=== PATIENT | female | born 1985 | race Caucasian/White ===

== ENCOUNTER 2024-11-30 12:18 | Emergency (ER) | payer OTHER, SELFPAY ==
--- NOTE | ~2024-11-30 | CT_ITS ---
CT abdomen pelvis w con Clinical History: R flank pain, UTI . Comparison: Pelvic ultrasound same day Technique: Axial images lung bases to symphysis pubis 100 mL Omnipaque 350 Coronal, sagittal reformats CT images acquired with automatic exposure control for dose reduction DLP: 213 mGy-cm Findings: Lung bases: Clear. Visualized heart and pericardium: Unremarkable. Liver: Mild periportal edema. Gallbladder: Unremarkable. Spleen: Unremarkable. Pancreas: Unremarkable. Adrenal glands: Unremarkable. Kidneys: Right kidney- No hydronephrosis. No renal stones. Left kidney- No hydronephrosis. No renal stones. Distal esophagus/stomach: Apparent gastric antral wall thickening likely merely underdistention. Small bowel loops: Normal caliber and wall thickness. Colon: Diverticula. Normal caliber and wall thickness. Normal RLQ appendix. Nodes: No enlarged nodes. Peritoneum: No ascites. No free air. Urinary bladder: Unremarkable. Uterus: Unremarkable. Adnexa: No masses. Bones: No acute bony abnormality. Soft tissues: Breast implants. Aorta: No aneurysm or dissection. IVC: Unremarkable. Main portal vein/SMV/splenic vein: Patent. IMPRESSION: 1. No acute findings. Reviewed, dictated and finalized at location R. IMPRESSION: 1. No acute findings.
--- NOTE | ~2024-11-30 | US_ITS ---
EXAMINATION: US pelvic complete w TV DATE: 11/30/2024 20:46 INDICATION: Vaginal bleeding and abdominal cramping TECHNIQUE: Multiple transabdominal and endovaginal sonographic images of the pelvis were obtained. COMPARISON: None. FINDINGS: The uterus measures 9.5 x 6.0 x 6.2 cm. The endometrial complex measures 9 mm in thickness. 5 mm anechoic cyst at the cervix. The right ovary measures 3.5 x 2.0 x 2.3 cm. The left ovary measures 2.6 x 2.5 x 2.2 cm. There are anechoic cysts/follicles in both ovaries measuring 7 mm on the right and 13 mm on the left. There is normal vascular flow in the ovaries. There is no free fluid in the pelvis. IMPRESSION: 1. Unremarkable pelvic ultrasound with small nabothian cyst at the cervix and small bilateral ovarian cysts/follicles. Reviewed, dictated and finalized at location A. IMPRESSION: 1. Unremarkable pelvic ultrasound with small nabothian cyst at the cervix and s mall bilateral ovarian cysts/follicles.
[2024-11-30 12:21] VITALS: BP 132/80; PULSE 68; RESP 16; TEMP 36.8; O2SAT 100
--- OUTSIDE RECORDS SUMMARY | 2024-11-30 12:22 | XMS_ITS | Clinical Summary ---
Author Organization [facility] Address [address] [place] [address] Phone Care Team Providers Care Uniform Patrol Police Officer Name Role Phone Codie Mario Ellis DO Primary Care Provider [phone] Medications Vilazodone HCl (VIIBRYD) 40 MG TabletIndications :Major Depressive Disorder Take 20 mg by mouth daily. Reported on 07/06/2016 Indications: Major Depressive Disorder 05/11/19 17 Active Vilazodone HCl (VIIBRYD) 20 MG TabletIndications :Major Depressive Disorder Take 20 mg by mouth. Indications: Major Depressive Disorder Active Dexmethylphenidat e HCl (FOCALIN XR) 10 MG CAPSULE SR 24 HRIndications:Att ention Deficit Hyperactivity Disorder Take 10 mg by mouth every morning. Indications: Attention Deficit Hyperactivity Disorder Active traZODone (DESYREL) 50 MG TabletIndications :Insomnia Take 50 mg by mouth nightly. Indications: Trouble Sleeping Active Active Problems Problem Noted Date Diagnosed Date Major depressive disorder, recurrent, moderate 0 05/29/2016 Generalized anxiety disorder 05/29/2016 Family History Medical History Relation Name Comments No Known Problems Brother Romeo Hypertension Father Malachi Diabetes Mother Angela High Cholesterol Mother Angela Hypertension Mother Angela No Known Problems Sister Lisa Relation Name Status Comments Brother Romeo Alive Father Malachi Alive Mother Angela Alive Sister Lisa Alive Social History Tobacco Use Types Packs/Day Years Used Date Smoking Tobacco: Never Smokeless Tobacco: Never Alcohol Use Standard Drinks/Week Comments Yes 0 (1 standard drink = 0.6 oz pur e alcohol) Occassionally Sexually Active Control Partners Comments Never Comments Unknown Sex and Gender Information Value Date Recorded Sex Assigned at Not on file 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 Gender Identity Not on file Sexual Orientation Not on file Plan of Treatment Health Maintenance Due Date Last Done Comments Hepatitis C Virus (HCV) Screening 1985 TdaP Immunization 1985 Hepatitis B Immunization (1 of 3 - 19+ 3-dose series) 2004 Pap Smear 2006 Human Papillomavirus (HPV) Immunization (1 - 3-dose SCDM series) 2012 Cervical Cancer Screening (CCS) 2015 HPV/Cotest 2015 SARS-COV-2 Immunization ( season) 2023 Influenza Immunization (#1) 2024 Respiratory Syncytial Virus (RSV) Immunization (Adult) (1 - 1-dose 75+ series) 2060 Meningococcal Immunization (ACWY) Aged Out No longer eligible based on patient's age to complete this topic Pneumococcal Immunization Combined Aged Out No longer eligible based on patient's age to complete this topic Rotavirus Immunization Aged Out No lo nger eligible based on patient's age to complete this topic Insurance Care Teams Uniform Patrol Police Officer Relationship Specialty Start Date End Date Mario Mackay DO [address] [place] [address] PCP - General Family Medicine 05/15/16
[2024-11-30 16:37] VITALS: BP 120/81; PULSE 79; RESP 16; O2SAT 100
--- NOTE | 2024-11-30 18:04 | ED.FEMALEGU ---
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 She reports she has a history of heavy menstrual periods but yesterday her bleeding became significant. Patient reports she has been passing clots, dizzy, and lightheaded. She denies any urinary symptoms, recent fevers, chest pain or shortness of breath. Patient reports she has also been experiencing intermittent abdominal pain and right-sided back pain. She reports she is not on control. Patient endorses a history of adenomyosis denies any other medical history relevant to this ER visit. <Ivy Love APRN - Last Filed: 11/30/24 19:20> Related Data Allergies/Adverse reactions: Allergies Allergy/AdvReac Type Severity Reaction Status Date / Time Penicillins Allergy Unknown Hives Verified 11/30/24 21:55 <Ivy Love APRN - Last Filed: 11/30/24 19:20> Review of Systems Review of Systems: All systems reviewed & are unremarkable except as noted in HPI and below <Ivy Love APRN - Last Filed: 11/30/24 19:20> Exam Narrative: GENERAL: Well appearing, well-nourished, non-toxic, in no acute distress. HEAD: Normocephalic, atraumatic. NECK: Supple. No adenopathy, no masses. RESPIRATORY: Airway patent, respirations nonlabored. Clear to auscultation bilaterally, no rales, rhonchi, wheezing. CARDIOVASCULAR: Regular rate and rhythm without murmurs, rubs, or gallops. Peripheral pulses 2+ and equal bilaterally. + right-sided CVA tenderness ABDOMINAL: Soft, bilateral lower quadrant tenderness, nondistended, no hepatosplenomegaly. Normoactive BS. MUSCULOSKELETAL: Moves all extremities. Strength/ROM intact without gross deformities. SKIN: Warm, dry, normal color. No rashes. NEURO: A&O X3. Speech clear. Cranial nerves II-XII intact. No ataxic movements. PSYCHIATRIC: Appropriate mood and affect. Normal interaction. <Ivy Love APRN - Last Filed: 11/30/24 19:20> Course Vital Signs Vital signs: Vital Signs Temperature 98.3 F 11/30/24 12:21 Pulse Rate 68 11/30/24 12:21 Respiratory Rate 16 11/30/24 12:21 Blood Pressure 132/80 11/30/24 12:21 Pulse Oximetry 100 11/30/24 12:21 Temperature 98.3 F 11/30/24 12:21 Pulse Rate 59 L 11/30/24 23:54 Respiratory Rate 14 11/30/24 23:54 Blood Pressure 107/71 11/30/24 23:54 Pulse Oximetry 100 11/30/24 23:54 <Ivy Love STEAM FRAME OPERATOR - Last Filed: 11/30/24 19:20> Vital Signs Temperature 98.3 F 11/30/24 12:21 Pulse Rate 68 11/30/24 12:21 Respiratory Rate 16 11/30/24 12:21 Blood Pressure 132/80 11/30/24 12:21 Pulse Oximetry 100 11/30/24 12:21 Temperature 98.3 F 11/30/24 12:21 Pulse Rate 59 L 11/30/24 23:54 Respiratory Rate 14 11/30/24 23:54 Blood Pressure 107/71 11/30/24 23:54 Pulse Oximetry 100 11/30/24 23:54 <Radha Hastings PA-C - Last Filed: 12/01/24 00:20> MDM - Female Genitourinary MDM Narrative Medical decision making narrative: Patient is a 39-year-old female who presents to the ER with concerns for heavy vaginal bleeding. She reports she has a history of heavy menstrual periods but yesterday her bleeding became significant. Patient reports she has been passing clots, dizzy, and lightheaded. She denies any urinary symptoms, recent fevers, chest pain or shortness of breath. Patient reports she has also been experiencing intermittent abdominal pain and right-sided back pain. She reports she is not on control. Patient endorses a history of adenomyosis denies any other medical history relevant to this ER visit. Labs Ordered: CBC, CMP, PTT, INR, lipase, UA Imaging Ordered: Pelvic ultrasound Medications Ordered: 1 L normal saline IV bolus, morphine 4 mg IV, Zofran 4 mg IV Results: Patient's CBC indicates no acute abnormalities. Her CMP indicates a creatinine of 0.62 but is otherwise unremarkable. Patient's lipase is 113. Her coags are within normal limits. Patient's urinalysis indicates patient has urinary tract infection. 1919- Care signed out to Radha Hastings PA-C, pending ultrasound results. <Ivy Love, STEAM FRAME OPERATOR - Last Filed: 11/30/24 19:20> Patient is a 39-year-old female who presents to the ER with concerns for heavy vaginal bleeding. She reports she has a history of heavy menstrual periods but yesterday her bleeding became significant. Patient reports she has been passing clots, dizzy, and lightheaded. She denies any urinary symptoms, recent fevers, chest pain or shortness of breath. Patient reports she has also been experiencing intermittent abdominal pain and right-sided back pain. She reports she is not on control. Patient endorses a history of adenomyosis denies any other medical history relevant to this ER visit. Labs Ordered: CBC, CMP, PTT, INR, lipase, UA Imaging Ordered: Pelvic ultrasound Medications Ordered: 1 L normal saline IV bolus, morphine 4 mg IV, Zofran 4 mg IV Results: Patient's CBC indicates no acute abnormalities. Her CMP indicates a creatinine of 0.62 but is otherwise unremarkable. Patient's lipase is 113. Her coags are within normal limits. Patient's urinalysis indicates patient has urinary tract infection. 1919- Care signed out to Radha Hastings PA-C, pending ultrasound results. - Care signed out to myself at shift change pending US results. US unremarkable, small nabothian cyst, small bilateral follicles. No concerning features. Discussed imaging findings with patient, diagnosis of UTI. Patient still having moderate pain in lower abd/R flank region. Requesting additional pain medication. Discussed obtaining CT imaging. Utilize shared decision-making. Patient would like to proceed with this. CT scan was unremarkable. No evidence of pyelonephritis. Patient will be discharged at that time on Bactrim for UTI. Advised follow-up with PCP/OBGYN for further evaluation of abnormal uterine bleeding. Discussed bleeding precautions, strict return precautions. Patient in agreement with plan. Discharged in stable condition. <Radha Hastings PA-C - Last Filed: 12/01/24 00:20> Differential Diagnosis Differential diagnosis: Likely urinary tract infection, ovarian cyst, ruptured ovarian cyst and dysmenorrhea <Ivy Love, STEAM FRAME OPERATOR - Last Filed: 11/30/24 19:20> Lab Data Attestation: I reviewed the patient's lab results. <Ivy Love STEAM FRAME OPERATOR - Last Filed: 11/30/24 19:20> Result diagrams: 11/30/24 18:25 11/30/24 18:25 <Ivy Love APRN - Last Filed: 11/30/24 19:20> Labs: Lab Results 11/30/24 11/30/24 Range/Units 18:18 18:25 WBC 6.9 (4.5-10.0) K/mm3 RBC 4.25 (4.2-5.4) M/mm3 Hgb 12.9 (12.0-15.0) g/dL Hct 38.5 (37.0-47.0) % MCV 90.6 (80-100) fl MCH 30.4 (26-34) pg MCHC 33.5 (32-36) g/dl RDW 12.7 (11.5-14.5) % Plt Count 258 (150-375) k/mm3 MPV 9.2 (7.4-10.4) fl Immature Gran % (Auto) 0.3 (0-0.5) % Neut % (Auto) 49.9 (45.5-73.1) % Lymph % (Auto) 43.3 (18.3-44.2) % Amite % (Auto) 4.8 (2.6-8.5) % Eos % (Auto) 1.0 (0-4.4) % Baso % (Auto) 0.7 (0.2-1.2) % Lymph # (Auto) 2.99 (0.9-3.2) K/mm3 Amite # (Auto) 0.3 (0.1-0.6) K/mm3 Eos # (Auto) 0.1 (0-0.3) K/mm3 Baso # (Auto) 0.1 (0.0-0.1) K/mm3 Abs Immat Gran (auto) 0.02 (0.00-0.031) K/mm3 Absolute Neuts (auto) 3.4 (1.3-6.7) K/mm3 Absolute Nucleated RBC 0.000 (0.0-0.012) K/mm3 Nucleated RBC % 0.0 (0.0-0.2) % PT 14.3 (11.1-14.7) Seconds INR 1.1 APTT 24.5 (22.3-36.8) Seconds Sodium 137 (137-145) mmol/L Potassium 3.8 (3.4-5.0) mmol/L Chloride 105 (98-107) mmol/L Carbon Dioxide 28 (22-30) mmol/L Anion Gap 4 (4-12) mmol/L BUN 14 (7-17) mg/dL Creatinine 0.62 L (0.7-1.0) mg/dL Estim Creat Clear Calc 86 ml/min Estimated GFR > 60 (59 - ) Glucose 81 (65-110) mg/dL Calcium 9.0 (8.4-10.2) mg/dL Total Bilirubin 0.6 (0.2-1.3) mg/dL AST 18 (14-36) U/L ALT 12 (6-35) U/L Alkaline Phosphatase 61 (38-126) U/L Total Protein 7.3 (6.3-8.2) g/dL Albumin 4.3 (3.5-5.1) g/dL Lipase 113 (23-300) U/L Urine Color Kittery H (Yellow) Urine Appearance Cloudy H (Clear) Urine pH 5.0 (5.0-9.0) Ur Specific Surrency 1.021 (1.001-1.035) Urine Protein 2+ H (Negative) mg/dL Urine Glucose (UA) Negative (Negative) mg/dL Urine Ketones 1+ H (Negative) mg/dL Ur Blood (Man) 3+ H (Negative) Urine Nitrate Negative (Negative) Urine Bilirubin Negative (Negative) Urine Urobilinogen 0.2 (<2.0) mg/dL Leukocyte Esterase Rfl 2+ H (Negative) ZANDER/UL Urine RBC >100 H (0-2) /hpf Urine WBC >100 H (0-3) /hpf Ur Squamous Epith Cells None seen (Few) /hpf Urine Bacteria None seen /hpf Urine Casts 0-2 POC Urine HCG, Qual Negative (Negative) <Ivy Ann Love, STEAM FRAME OPERATOR - Last Filed: 11/30/24 19:20> Lab Results 11/30/24 11/30/24 Range/Units 18:18 18:25 WBC 6.9 (4.5-10.0) K/mm3 RBC 4.25 (4.2-5.4) M/mm3 Hgb 12.9 (12.0-15.0) g/dL Hct 38.5 (37.0-47.0) % MCV 90.6 (80-100) fl MCH 30.4 (26-34) pg MCHC 33.5 (32-36) g/dl RDW 12.7 (11.5-14.5) % Plt Count 258 (150-375) k/mm3 MPV 9.2 (7.4-10.4) fl Immature Gran % (Auto) 0.3 (0-0.5) % Neut % (Auto) 49.9 (45.5-73.1) % Lymph % (Auto) 43.3 (18.3-44.2) % Amite % (Auto) 4.8 (2.6-8.5) % Eos % (Auto) 1.0 (0-4.4) % Baso % (Auto) 0.7 (0.2-1.2) % Lymph # (Auto) 2.99 (0.9-3.2) K/mm3 Amite # (Auto) 0.3 (0.1-0.6) K/mm3 Eos # (Auto) 0.1 (0-0.3) K/mm3 Baso # (Auto) 0.1 (0.0-0.1) K/mm3 Abs Immat Gran (auto) 0.02 (0.00-0.031) K/mm3 Absolute Neuts (auto) 3.4 (1.3-6.7) K/mm3 Absolute Nucleated RBC 0.000 (0.0-0.012) K/mm3 Nucleated RBC % 0.0 (0.0-0.2) % PT 14.3 (11.1-14.7) Seconds INR 1.1 APTT 24.5 (22.3-36.8) Seconds Sodium 137 (137-145) mmol/L Potassium 3.8 (3.4-5.0) mmol/L Chloride 105 (98-107) mmol/L Carbon Dioxide 28 (22-30) mmol/L Anion Gap 4 (4-12) mmol/L BUN 14 (7-17) mg/dL Creatinine 0.62 L (0.7-1.0) mg/dL Estim Creat Clear Calc 86 ml/min Estimated GFR > 60 (59 - ) Glucose 81 (65-110) mg/dL Calcium 9.0 (8.4-10.2) mg/dL Total Bilirubin 0.6 (0.2-1.3) mg/dL AST 18 (14-36) U/L ALT 12 (6-35) U/L Alkaline Phosphatase 61 (38-126) U/L Total Protein 7.3 (6.3-8.2) g/dL Albumin 4.3 (3.5-5.1) g/dL Lipase 113 (23-300) U/L Urine Color Kittery H (Yellow) Urine Appearance Cloudy H (Clear) Urine pH 5.0 (5.0-9.0) Ur Specific Surrency 1.021 (1.001-1.035) Urine Protein 2+ H (Negative) mg/dL Urine Glucose (UA) Negative (Negative) mg/dL Urine Ketones 1+ H (Negative) mg/dL Ur Blood (Man) 3+ H (Negative) Urine Nitrate Negative (Negative) Urine Bilirubin Negative (Negative) Urine Urobilinogen 0.2 (<2.0) mg/dL Leukocyte Esterase Rfl 2+ H (Negative) ZANDER/UL Urine RBC >100 H (0-2) /hpf Urine WBC >100 H (0-3) /hpf Ur Squamous Epith Cells None seen (Few) /hpf Urine Bacteria None seen /hpf Urine Casts 0-2 POC Urine HCG, Qual Negative (Negative) <Radha Hastings PA-C - Last Filed: 12/01/24 00:20> Imaging Data Attestation: I personally reviewed and interpreted this imaging study as follows: <Radha Hastings PA-C - Last Filed: 12/01/24 00:20> Radiologist's impression: STAT RAD CT abd/pelvis: Impression: No acute findings. Normal CT appearance of the urinary bladder. No CT evidence of pyelonephritis. <Radha Hastings PA-C - Last Filed: 12/01/24 00:20> Discharge Plan Discharge Clinical Impression: DUB (dysfunctional uterine bleeding) UTI (urinary tract infection) Qualifiers: Urinary tract infection type: acute cystitis Hematuria presence: with hematuria Qualified Code(s): N30.01 - Acute cystitis with hematuria <Ivy Love APRN - Last Filed: 11/30/24 19:20> Patient Disposition: Home <Ivy Love APRN - Last Filed: 11/30/24 19:20> Condition: Stable <Ivy Love APRN - Last Filed: 11/30/24 19:20> Instructions: Antibiotic Form, Abnormal (Dysfunctional) Uterine Bleeding (ED), Urinary Tract Infection in Women (ED) <Ivy Love APRN - Last Filed: 11/30/24 19:20> Additional Instructions: Take antibiotics as prescribed for urinary tract infection. Stay well hydrated. Continue Tylenol/ibuprofen as needed for pain. Follow-up with your primary care doctor and/or OBGYN for further evaluation. Continue to monitor bleeding. Return to the ED if you experience worsening or severe pain or bleeding, unable to keep down food or drink, fevers, difficulty urinating, or any other symptoms of concern. <Ivy Love APRN - Last Filed: 11/30/24 19:20> Patient Language: Persian <Ivy Love APRN - Last Filed: 11/30/24 19:20> Prescriptions: New sulfamethoxazole-trimethoprim [Bactrim DS] 800-160 mg tablet 1 tablet PO Q12H 7 Days Qty: 14 0RF <Ivy Love APRN - Last Filed: 11/30/24 19:20> Follow-up/Referrals: Steven Hebert MD [Primary Care Provider, [employer] OPERATOR] <Ivy oLve APRN - Last Filed: 11/30/24 19:20> Time of Disposition: 00:20 <Ivy Love APRN - Last Filed: 11/30/24 19:20> 00:20 <Radha Hastings PA-C - Last Filed: 12/01/24 00:20>
[2024-11-30 18:21] VITALS: BP 120/84; PULSE 67; RESP 20; O2SAT 100
[2024-11-30 18:23] LABS: BEDSIDEPREGUCG Negative (Negative)
[2024-11-30] MEDS: ONDANSETRON INJ 4 MG/2 ML VIAL IV PUSH (18:27)
[2024-11-30] MEDS: MORPHINE SULFATE (*CRX) 4 MG/ML INJ IV PUSH ×2 (18:27→21:55)
[2024-11-30] MEDS: SODIUM CHLORIDE 0.9% IV 1,000 ML 999 ML IV CONT (18:28)
[2024-11-30 18:40] LABS: Hematocrit 38.5 % (37.0-47.0); Hemoglobin 12.9 g/dL (12.0-15.0); Immature Granulocyte Percent A 0.3 % (0-0.5); Lymphocytes Absolute Auto 2.99 K/mm3 (0.9-3.2); Mean Corpuscular HGB Conc 33.5 g/dl (32-36); Mean Corpuscular Hemoglobin 30.4 pg (26-34); Mean Corpuscular Volume 90.6 fl (80-100); Nucleated Red Blood Cells Absolute Auto 0.000 K/mm3 (0.0-0.012); Nucleated Red Blood Cells Perc 0.0 % (0.0-0.2); Platelet Count Result 258 k/mm3 (150-375); Red Blood Count 4.25 M/mm3 (4.2-5.4); White Blood Count 6.9 K/mm3 (4.5-10.0)
[2024-11-30 18:48] LABS: Non Pathogenic Casts 0-2
[2024-11-30 18:50] LABS: Add Urine Microscopic? YES; Appearance Urine Cloudy (Clear); Glucose Urine UA Negative (Negative); Leukocyte Esterase Ur 2+ LEU/UL (Negative); Nitrate Urine Negative (Negative); Specific Grav Ur 1.021 (1.001-1.035)
[2024-11-30 18:56] LABS: Alanine Aminotransferase 12 U/L (6-35); Albumin Level 4.3 g/dL (3.5-5.1); Alkaline Phosphatase 61 U/L (38-126); Anion Gap 4 mmol/L (4-12); Aspartate Amino Transferase 18 U/L (14-36); Bilirubin,Total 0.6 mg/dL (0.2-1.3); Blood Urea Nitrogen 14 mg/dL (7-17); Calcium 9.0 mg/dL (8.4-10.2); Carbon Dioxide 28 mmol/L (22-30); Chloride 105 mmol/L (98-107); Estimated CRCL calculation 86 ml/min; Estimated Glomerular Filt Rate > 60; Glucose 81 mg/dL (65-110); Lipase 113 U/L (23-300); Potassium 3.8 mmol/L (3.4-5.0); Sodium 137 mmol/L (137-145); Total Protein 7.3 g/dL (6.3-8.2)
[2024-11-30 19:04] LABS: INR 1.1; Prothrombin Time 14.3 Seconds (11.1-14.7)
[2024-11-30 19:05] LABS: Partial Thromboplastin Time 24.5 Seconds (22.3-36.8)
[2024-11-30] MEDS: SULFAMETHOXAZOLE/TRIMETHOPRIM 800/160 MG DS TABLET 1 TAB PO (19:47)
[2024-11-30 19:59] VITALS: BP 104/68; PULSE 58; RESP 13; O2SAT 100
[2024-11-30 22:01] VITALS: PULSE 71; RESP 16; O2SAT 98
[2024-11-30 23:54] VITALS: BP 107/71; PULSE 59; RESP 14; O2SAT 100
[2024-12-01 00:47] VITALS: BP 104/70; PULSE 63; RESP 17; O2SAT 99
[2024-12-01 00:48] VITALS: BP 104/70; PULSE 63; RESP 17; TEMP 36.9; O2SAT 99
== END 2024-12-01 00:51 | disposition home or self-care (01) ==
PROVIDERS: Emergency Provider Registered Nurse; PCP Obstetrics & Gynecology
DX: N93.8 Other specified abnormal uterine and vaginal bleeding (principal); N30.01 Acute cystitis with hematuria; N80.03 Adenomyosis of the uterus
CPT/HCPCS: 36415; 74177; 76830; 76856; 80053; 81001; 81025; 83690; 85025; 85610; 85730; 87086; 96361; 96374; 96375; 96376; 99284; A9270; J2270; J2405; J7030; Q9967